=== PATIENT | female | born 1980 | race Caucasian/White ===

== ENCOUNTER 2016-10-01 03:26 | Emergency (ER) | payer OTHER | END 2016-10-01 04:35 | disposition home or self-care (01) | LOC: ER 03:26 | DX: T24.222A Burn of second degree of left knee, initial encounter (principal); V00-Y99 External causes of morbidity; J45.909 Unspecified asthma, uncomplicated; E11.9 Type 2 diabetes mellitus without complications; F17.210 Nicotine dependence, cigarettes, uncomplicated; R06.02 Shortness of breath; G35 Multiple sclerosis; Z79.899 Other long term (current) drug therapy | CPT/HCPCS: 99070; 99282 ==